=== PATIENT | female | born 1995 | race Caucasian/White ===

== ENCOUNTER 2017-05-15 11:00 | Emergency (ER) | payer BC ==
[2017-05-15] MEDS ORDERED: Metoclopramide HCl 10 MG/2 ML VIAL ONE (11:24)
[2017-05-15] MEDS ORDERED: diphenhydrAMINE 25 MG CAP ONE (11:24)
[2017-05-15] MEDS ORDERED: Ketorolac Tromethamine 30 MG/ML VIAL ONE (11:24)
[2017-05-15 11:56] LABS: BHCG - Serum Negative (NEGATIVE); Pregs Control Background? CLEAR/WHITE (CLR/WHITE); Pregs Control Bar Appear? YES (CONTROL BAR)
== END 2017-05-15 12:17 | disposition home or self-care (01) ==
LOC: BURERS 11:00
DX: G44.209 Tension-type headache, unspecified, not intractable (principal); G43.909 Migraine, unspecified, not intractable, without status migrainosus; F32.9 Major depressive disorder, single episode, unspecified
CPT/HCPCS: 84703; 96365; 96375; J1885; J2765

== ENCOUNTER 2018-07-07 17:10 | Emergency (ER) | payer BC, SELFPAY ==
[2018-07-07] MEDS ORDERED: Ketorolac Tromethamine 30 MG/ML VIAL ONE (17:49)
[2018-07-07] MEDS ORDERED: Prochlorperazine 10 MG/2 ML VIAL ONE (17:49)
[2018-07-07] MEDS ORDERED: diphenhydrAMINE 50 MG/ML VIAL ONE (17:49)
== END 2018-07-07 18:56 | disposition home or self-care (01) ==
LOC: BURERS 17:10
DX: G43.909 Migraine, unspecified, not intractable, without status migrainosus (principal); I10 Essential (primary) hypertension; F32.9 Major depressive disorder, single episode, unspecified
CPT/HCPCS: 96374; 96375; J0780; J1200; J1885